=== PATIENT | male | born 1955 | race Caucasian/White ===

== ENCOUNTER 2018-03-10 09:35 | Outpatient (CLI) ==
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
== END 2018-03-10 09:36 | disposition home or self-care (01) ==
LOC: RAD 09:35
PROVIDERS: ATTEND Family Medicine
DX: S09.90XD Unspecified injury of head, subsequent encounter (principal)

== ENCOUNTER 2018-11-29 07:23 | Day surgery (SDC) ==
[2018-11-29 07:48] VITALS: TEMP 98.2
[2018-11-29] MEDS ORDERED: LIDOCAINE 1% 20 ML MDV ID STA (07:48)
[2018-11-29] MEDS ORDERED: DIPRIVAN 20 ML VIAL IVP ONE (09:15)
[2018-11-29] MEDS ORDERED: VERSED ONE (09:15)
[2018-11-29 13:44] VITALS: BP 121/56
--- NOTE | 2018-11-30 10:10 | OP ---
INDICATIONS FOR PROCEDURE: 63 YEAR OLD GENTLEMAN PRESENTS FOR COLONOSCOPY. HE HAS A HISTORY OF ADENOMATOUS POLYPS WITH LAST COLONOSCOPY THREE YEARS AGO. HE PRESENTS FOR COLONOSCOPY EXAM. MEDICATIONS: SEE ANESTHESIA NOTES. PROCEDURE: COLONOSCOPY. SNARE POLYPECTOMY. REPORT: The risks, benefits, alternatives and limitations were discussed in detail with the patient. Informed consent was obtained. After adequate sedation was achieved, a digital rectal exam revealed good tone, no masses. The colonoscope was introduced into the rectum and advanced under direct visual guidance to the cecum. The cecum was identified by the appendiceal orifice and IC valve. I then slowly withdrew the scope in a circumferential manner and examined the mucosa quite carefully. I looked on the proximal and distal sides of folds and flexures as best as possible. I was able to retroflex the scope in the right colon and the left colon to increase visualization. In the ascending colon there was a sessile 5-6mm polyp that I removed by snare technique. In the proximal transverse colon there was 4 polyps and these ranged in size from 5-6mm and sessile to semi-sessile I removed all four of these by snare technique. These were placed in a jar. In the distal sigmoid area there was a 5mm sessile polyp that i removed by snare technique. There were not other abnormalities that were noted including on retroflex view of the anal canal. The prep was good. He did have some hypermotility of the colon as I withdrew through the transverse colon but no other abnormalities were noted. The withdraw time was 19 minutes and 0 seconds. The patient tolerated the procedure well with stable vital signs and pulse oximetry throughout. IMPRESSION: 1. 6 small polyps removed as above RECOMMENDATIONS: 1. High fiber diet 2. Office visit as needed 3. Await polyp pathology and if everything is benign as expected I recommended a surveillance colonoscopy examination again in 3 years or sooner if there are signs or symptoms to indicate otherwise. CC: Dr. Jose BRYANT
== END 2018-11-29 10:45 | disposition home or self-care (01) ==
LOC: SURG 07:23
PROVIDERS: ATTEND Internal Medicine Gastroenterology
DX: D12.6 Benign neoplasm of colon, unspecified (principal); Z86.010 Personal history of colon polyps; D12.2 Benign neoplasm of ascending colon; D12.3 Benign neoplasm of transverse colon; K63.5 Polyp of colon

== ENCOUNTER 2018-12-08 17:24 | Emergency (ER) ==
[2018-12-08 17:43] VITALS: BP 143/86; TEMP 100.3; BMI 34.0
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
== END 2018-12-08 22:05 | disposition home or self-care (01) ==
LOC: ED 17:24
DX: S82.141A Displaced bicondylar fracture of right tibia, initial encounter for closed fracture (principal); M54.2 Cervicalgia; M54.5 Low back pain; R10.30 Lower abdominal pain, unspecified; M25.571 Pain in right ankle and joints of right foot; M25.572 Pain in left ankle and joints of left foot; M25.561 Pain in right knee; M25.562 Pain in left knee; R10.2 Pelvic and perineal pain; V29.9XXA Motorcycle rider (driver) (passenger) injured in unspecified traffic accident, initial encounter
CPT/HCPCS: 36415; 80053; 81001; 85025; 99283